=== PATIENT | male | born 1955 | race Caucasian/White ===

== ENCOUNTER → 2020-09-06 15:00 | Outpatient (BNVA) | payer SELFPAY | PROVIDERS: PCP Pediatrics; Referring Provider Pediatrics; Visit Provider Urology | DX: Z76.89 Persons encountering health services in other specified circumstances (principal) ==

== ENCOUNTER 2020-10-17 14:45 | Outpatient (REF) | payer OTHER, SELFPAY ==
--- NOTE | 2020-10-17 | US_ITS ---
EXAMINATION: US RETROPERITONEAL COMPLETE (RENAL) CLINICAL INFORMATION: Nocturia. COMPARISON: None TECHNIQUE: Real-time imaging of the kidneys and bladder. FINDINGS: RIGHT KIDNEY: 11.6 x 5.6 x 5.1 cm (SAG x AP x TRV). The kidney is normal in size, contour, and echogenicity. Renal cortical thickness is normal. No calculi or focal parenchymal lesions. No hydronephrosis. LEFT KIDNEY: 11.2 x 7.5 x 5.6 cm (SAG x AP x TRV). The kidney is normal in size, contour, and echogenicity. Renal cortical thickness is normal. No renal calculi or hydronephrosis. There is sclerotic exophytic anechoic cyst measuring 1.1 x 0.9 x 0.7 cm BLADDER: Well distended and normal. Bilateral ureteral jets are demonstrated. Prevoid bladder volume is 129 mL. Postvoid bladder volume is 35 mL. ADDITIONAL FINDINGS: The prostate volume is 39.5 mL. US/US retroperitoneal comp IMPRESSION: Exophytic cyst midpole left kidney. There are no echogenic stones or hydronephrosis. Small postvoid residual bladder volume with normal bilateral ureteral jets seen. The prostate gland is mildly enlarged.
== END 2020-10-17 14:46 | disposition home or self-care (01) ==
LOC: HO.US 14:45
PROVIDERS: PCP Internal Medicine; Visit Provider Urology
DX: R35.1 Nocturia (principal)
CPT/HCPCS: 76770